=== PATIENT | female | born 1955 | race Caucasian/White ===

== ENCOUNTER 2020-04-22 08:10 | Emergency (ER) | payer OTHER ==
[~2020-04-22 08:10] MED LIST: ASCORBIC ACID500 MG PO; DIOVAN160 MG PO; ELIQUIS5 MG PO; LIPITOR 10MG TA10 MG PO; LOPRESSOR25 MG PO; MACROBID100 MG PO; NORVASC5 MG PO; ORAZINC220 MG PO; PHENERGAN25 M1 PO; PROTONIX 40MG T40 MG PO; PROZAC20 MG PO; TRANSDERM-SCOP1 EACH TD
[2020-04-22 09:14] LABS: BASOPHIL 0.3 % (0-2); EOSINOPHIL 0.1 % (0-7); HCT 42.7 % (37.0-47.0); HGB 13.1 g/dl (12.5-16.0); LYMPHOCYTE 9.5 % (15-48); MCH 28.4 pg (25.0-31.0); MCHC 30.7 g/dL (32.0-36.0); MCV 92.4 fL (78.0-100.0); MONOCYTE 4.6 % (0-12); MPV 11.2 fL (6.0-9.5); NEUTROPHIL 85.1 % (41-80); NRBC 0; PLT 306 K/uL (150-400); RBC 4.62 M/uL (4.20-5.40); RDW 13.8 % (11.5-14.0)
[2020-04-22 09:46] LABS: ALBUMIN 3.8 g/dL (3.4-5.0); BILIRUBIN - TOTAL 0.7 mg/dL (0.2-1.0); BUN/CREAT RATIO (CALC) 31.6 RATIO; CREATININE 0.79 mg/dL (0.51-0.95); GLOBULIN (CALCULATION) 4.3 g/dL; POTASSIUM 3.5 mmol/L (3.5-5.1); TOTAL PROTEIN 8.1 g/dL (6.4-8.2)
[2020-04-22 09:49] LABS: LACTIC ACID 3.1 mmol/L (0.4-1.9)
[2020-04-22 11:14] LABS: BILIRUBIN 1+ mg/dL (NEGATIVE); BLOOD 1+ Ery/uL (NEGATIVE); CLARITY CLEAR (CLEAR); COLOR YELLOW (YELLOW); GLUCOSE (U) NORMAL (NORMAL); LEUKOCYTES NEGATIVE Leu/uL (NEGATIVE); NITRITE NEGATIVE (NEGATIVE); PROTEIN TRACE (LOW) mg/dL (NEGATIVE); SPECIFIC GRAVITY >=1.030 (1.001-1.030); UROBILINOGEN 0.2 mg/dL (0.2-1.0)
[2020-04-22 11:22] LABS: URINARY WBC RARE
[2020-04-22] MEDS ORDERED: PROMETHEGA12.5 MG/SU PR (13:52)
[2020-04-23] MEDS ORDERED: SINGULAIR10 MG PO (08:41)
[2020-04-23] MEDS ORDERED: CALCIUM WITH V1 EAC2 PO (08:42)
[2020-04-27] MEDS ORDERED: QUESTRAN PACKET4 GM PO (12:14)
[2020-04-27] MEDS ORDERED: CARAFATE1 GM PO (12:14)
== END 2020-04-22 13:56 | disposition home or self-care (01) ==
LOC: FER 08:10
PROVIDERS: Emergency Medicine
DX: R11.2 Nausea with vomiting, unspecified (principal); E86.0 Dehydration; K21.9 Gastro-esophageal reflux disease without esophagitis; I10 Essential (primary) hypertension; I48.91 Unspecified atrial fibrillation; Z88.5 Allergy status to narcotic agent; Z88.1 Allergy status to other antibiotic agents; Z88.8 Allergy status to other drugs, medicaments and biological substances; Z79.01 Long term (current) use of anticoagulants
CPT/HCPCS: 36415; 80053; 81001; 83605; 83690; 84484; 85025; 93005; J2405; J2550; J7030; J7040

== ENCOUNTER → 2020-04-27 | Day surgery (SDC) | payer OTHER ==
[~2020-04-27] MED LIST changes: +CALCIUM WITH V1 EAC2 PO; +CARAFATE1 GM PO; +PROMETHEGA12.5 MG/SU PR; +QUESTRAN PACKET4 GM PO; +SINGULAIR10 MG PO
== END | disposition home or self-care (01) ==
LOC: FAS 08:45
DX: Z12.11 Encounter for screening for malignant neoplasm of colon (principal); K21.00 Gastro-esophageal reflux disease with esophagitis, without bleeding; K31.89 Other diseases of stomach and duodenum; K44.9 Diaphragmatic hernia without obstruction or gangrene; K57.30 Diverticulosis of large intestine without perforation or abscess without bleeding; J45.909 Unspecified asthma, uncomplicated; I10 Essential (primary) hypertension; I48.91 Unspecified atrial fibrillation; Z79.01 Long term (current) use of anticoagulants; Z79.82 Long term (current) use of aspirin; Z79.899 Other long term (current) drug therapy; Z88.5 Allergy status to narcotic agent; Z88.8 Allergy status to other drugs, medicaments and biological substances
CPT/HCPCS: 43239; G0121; 88305